=== PATIENT | female | born 1980 | race Asian ===

== ENCOUNTER 2021-09-04 11:17 | Emergency (ER) | payer MEDICAID ==
[2021-09-04 12:11] LABS: ESTIMATED GFR 83 mL/min (>60)
[2021-09-04 12:19] LABS: CORONAVIRUS COVID-19 NAA POSITIVE (NEGATIVE)
== END 2021-09-04 13:00 | disposition home or self-care (01) ==
LOC: FB.ED 11:17
DX: U07.1 COVID-19 (principal); Z28.310 Unvaccinated for COVID-19
CPT/HCPCS: 0241U; 36415; 71046; 80053; 85025; 87651-QW; 93005; 93010; 99282; 99284